=== PATIENT | male | born 1990 | race Two or more races ===

== ENCOUNTER 2017-07-17 23:16 | Emergency (ER) | payer OTHER ==
[~2017-07-17] VITALS: Ht 170.2 cm; Wt 68.0 kg
[2017-07-17 23:26] VITALS: BP 129/83
[2017-07-17] MEDS ORDERED: AMOX TR-K CLV1 EAC2 ORAL (23:43)
[2017-07-17] MEDS ORDERED: HYDROcodone/Acetamin 10/325 tab ORAL ONE (23:45)
--- NOTE | 2017-07-17 23:57 | Emergency Room Report ---
History of Present Illness General Chief Complaint: Earache Source: Patient Present Illness HPI 27-year-old male, no significant past medical history, presenting with right ear pain for 2 days. States that he has had ear infections in the past. No fever no chills. No other complaints Allergies: Coded Allergies: No Known Allergies (Unverified , 07/17/17) Patient History Past Medical History: see triage record Past Surgical History: none Pertinent Family History: none Reviewed Nursing Documentation: PMH: Agreed, PSxH: Agreed Nursing Documentation-PMH Past Medical History: No Stated History Review of Systems All Other Systems: negative except mentioned in HPI Physical Exam Vital Signs Date Time Temp Pulse Resp B/P (MAP) Pulse Ox O2 Delivery O2 Flow Rate FiO2 07/17/17 23:22 98.4 60 16 129/83 97 Room Air Sp02 EP Interpretation: reviewed, normal General Appearance: normal inspection, well appearing, no apparent distress, alert, GCS 15, non-toxic Head: normocephalic, atraumatic Eyes: bilateral eye normal inspection, bilateral eye PERRL, bilateral eye EOMI ENT: other - Right TM is bulging, erythematous, with effusion Neck: normal inspection, full range of motion, supple Respiratory: normal inspection, lungs clear, normal breath sounds, no respiratory distress, no retraction, no wheezing, speaking full sentences, chest symmetrical Cardiovascular #1: normal inspection, regular rate, rhythm, normal capillary refill Cardiovascular #2: 2+ radial (R), 2+ radial (L) Gastrointestinal: normal inspection, non tender, soft, non-distended, no guarding Genitourinary: no CVA tenderness Musculoskeletal: normal inspection, back normal, normal range of motion, non- tender Neurologic: normal inspection, alert, oriented x3, responsive, motor strength/ tone normal, sensory intact, normal gait, speech normal Psychiatric: normal inspection, judgement/insight normal, memory normal Skin: normal inspection, normal color, no rash, warm/dry, well hydrated, normal turgor Medical Decision Making Diagnostic Impression: Primary Impression: Otitis media ER Course 27-year-old male with right ear pain DDX: Right-sided otitis media Plan: Pain control and discharge with antibiotics ER course: Patient has remained stable during ED stay. Awake and alert, nontoxic appearing Disposition: Patient is to be discharged to home. Prescriptions given are Augmentin Patient is instructed to follow up with their ent doctor in one to 2 weeks Please note that this Emergency Department Report was dictated using [employer] supervisor technology software, occasionally this can lead to erroneous entry secondary to interpretation by the dictation equipment Last Vital Signs Date Time Temp Pulse Resp B/P (MAP) Pulse Ox O2 Delivery O2 Flow Rate FiO2 07/17/17 23:22 98.4 60 16 129/83 97 Room Air Disposition: HOME, SELF-CARE Condition: Improved Scripts Amoxicillin/Potassium Clav 875-125 Mg Tab* (AMOX TR-K CLV 875-125 MG TAB*) 1 Each Tablet 1 TAB ORAL EVERY 12 HOURS for 7 Days, #14 TAB 0 Refills Prov: Neftali Martinez M.D. 07/17/17 Patient Instructions: Otitis Media, Adult Neftali Martinez M.D. Jul 17, 2017 23:57
[2017-07-18 00:02] VITALS: BP 129/83
== END 2017-07-18 00:01 | disposition home or self-care (01) ==
LOC: EMR 07-18 00:01
DX: H66.91 Otitis media, unspecified, right ear (principal)
CPT/HCPCS: 99283